=== PATIENT | male | born 1945 | race Caucasian/White ===

== ENCOUNTER 2021-01-17 15:31 | Outpatient (CLI) | payer MEDICARE, OTHER, SELFPAY ==
[2021-01-17 15:54] VITALS: BP 139/59; PULSE 86; RESP 18; TEMP 38.3; O2SAT 96; BMI 29.2
[2021-01-17] MEDS: Acetaminophen 325 MG Tablet 650 MG PO (16:02)
[2021-01-17] MEDS: 0.9% Saline Lock 10 ML Syringe IV (16:06)
[2021-01-17 16:55] VITALS: BP 129/57; PULSE 87; RESP 18; TEMP 38.4; O2SAT 94
[2021-01-17 17:56] VITALS: BP 125/59; PULSE 87; RESP 18; TEMP 37.7; O2SAT 95
== END 2021-01-17 15:44 | disposition home or self-care (01) ==
LOC: MS3OUT 15:33 → MS3 15:34
PROVIDERS: Referring Provider Nurse Practitioner Adult Health; Visit Provider Nurse Practitioner Adult Health
DX: Z23 Encounter for immunization (principal); U07.1 COVID-19
CPT/HCPCS: J7050; M0245; Q0245; A4216